=== PATIENT | female | born 1975 | race Hispanic/Latino ===

== ENCOUNTER 2017-11-12 03:59 | Inpatient (IN) | payer OTHER ==
--- NOTE | 2017-11-11 17:41 | History & Physical Pre-Op ---
General Information and HPI History of Present Illness: This patient is a 42yo with chronic pelvic pain admitted for total abdominal hysterectomy. She has been treated hormonally to no avail. She was counselled and offered embolization with IR but desires definitive surgical treatment. She desires to retain he ovaries if found to be normal appearing at time of surgery. Allergies/Medications Allergies: Coded Allergies: No Known Allergies (11/06/17) Home Med list Hydrochlorothiazide 25 MG TABLET 1 TAB PO DAILY BP (Reported) Valacyclovir Hydrochloride (Valtrex) 500 MG TABLET 1 TAB PO DAILY UNKNOWN ( Reported) Vortioxetine Hydrobromide (Trintellix) 5 MG TABLET 1 TAB PO DAILY ANXIETY ( Reported) Past History Surgical History Pertinent Surgical History: , tubal ligation Review of Systems Review of Systems Constitutional: Reports: no symptoms. EENTM: Reports: no symptoms. Cardiovascular: Reports: no symptoms. Respiratory: Reports: no symptoms. GI: Reports: no symptoms. Genitourinary: Reports: see HPI. Musculoskeletal: Reports: see HPI. Skin: Reports: no symptoms. Neurological/Psychological: Reports: no symptoms. Hematologic/Endocrine: Reports: no symptoms. Immunologic/Allergic: Reports: no symptoms. All Other Systems: Reviewed and Negative Exam & Diagnostic Data Last 24 Hrs of Vital Signs/I&O vss Physical Exam: HEENT: NCAT Chest: CTA CV: nl S1S2 Abd: soft, NTND pelvic: deferred to OR Ext: no c/c/e Assessment/Plan Assessment/Plan: chronic pelvic pain ANTHONY ureteral stents pre-op As Ranked By This Provider Problem List: 1. Chronic female pelvic pain
[~2017-11-12] VITALS: Ht 154.9 cm; Wt 90.7 kg
[2017-11-12] VITALS (8 sets, daily range): BP systolic 122–158; BP diastolic 70–96
[~2017-11-12 03:59] MED LIST: HYDROCHLOROTHIA25 M1 PO; TRINTELLIX5 MG PO; VALTREX500 M1 PO
--- NOTE | 2017-11-12 08:10 | Operative Report ---
Operative/Inv Procedure Report Surgery Date: 11/12/17 Name of Procedure: CYSTOSCOPY: BILATERAL STENT INSERTION Pre-Operative Diagnosis: PELVIC PAIN/FIBROIDS Post-Operative Diagnosis: SAME Estimated Blood Loss: scant Surgeon/Apron Operator: MD Yonas, Chris-urology Anesthesia: general endotracheal tube Drains: 18 fr muñoz Specimens: ucx Complications: none Operative/Procedure Note Note: The patient was taken to the operating room and placed on the OR table in supine position. Timeout was performed, with the patient awake, to confirm identify, planned procedures, anesthesia, antibiotics and other pertinent juaquin-operative information. After adequate anesthesia, and IV antibiotics, the patient was placed in lithotomy Yellow-fin stirrups. She was then draped and prepped in the usual surgical fashion, including a vaginal prep. A 22 Bahamian cystoscope sheath with a 30 angle lens was inserted into the bladder without significant difficulty. The bladder was thoroughly and systematically examined, and was noted to be free of tumor, free of stone, free of endometriosis. Both ureteral orifices were in their orthotopic positions with clear reflux bilaterally. Under direct visualization the left orifice was intubated with a 5 Bahamian whistle-tip catheter, which was advanced easily into the left kidney pelvis. The right ureteral orifice was intubated with a second 5 Bahamian ureteral whistle tip catheter, and advanced into the right renal pelvis without difficulty. For identification purposes the blue marked stent went into the left kidney and the right ureteral stent was marked red. Urine culture was obtained and sent to pathology. The cystoscope was then removed leaving both stents in proper place. An 18 Bahamian Muñoz catheter was inserted draining clear fluid and 10 mL of sterile water was then placed in the balloon. The ends ureteral stents, which protruded externally, were taped to the Muñoz catheter in order to secure their position. The individual ureteral stents were then connected to their individual drainage devices. All sponge needle and instrument count were correct at the end of this case. The patient tolerated the procedure well. The patient was then placed in supine position with Venodyne's in place. At this point, Dr.Vander English was able to proceed with the patient's surgery. Discharge Disposition: Proceed with Dr. Brice who will take stents out at end of his surge CC: Chris Branham MD
--- NOTE | 2017-11-12 10:44 | Operative Report ---
Operative/Inv Procedure Report Surgery Date: 11/12/17 Name of Procedure: Total abdominal hysterectomy bilateral salpingectomy Pre-Operative Diagnosis: Chronic pelvic pain Post-Operative Diagnosis: Same Estimated Blood Loss: 100 mL Surgeon/Director Of [employer]: Farrah Will MD,Jovan Vora M.D. Anesthesia: general endotracheal tube Operative/Procedure Note Note: The patient was brought to the operating room placed on the OR table in the dorsal supine position. After she was given general anesthesia she was successfully intubated. She was repositioned in modified dorsal lithotomy and underwent bilateral ureteral stent placement by Dr. Branham. And tabs block by anesthesia. After that procedure was accomplished she was repositioned in dorsal supine. A Darby catheter was draining urine. The abdomen was prepped and draped in usual sterile fashion and a Pfannenstiel skin incision was made with the scalpel. This was taken down to the layer of the fascia nicked in midline and extended bilaterally. The peritoneum was entered bluntly at its extended bilaterally. A O'Tyler-O'Michaels retractor was placed into the abdomen and the intestines were packed away with moistened laparotomy pads. A double-tooth tenaculum was attached to the fundus of the uterus and elevated throughout the case. The right round ligament was isolated with a suture ligature of 0 Polysorb and transected. The same procedures. On the left. The right utero-ovarian ligament was clamped transected and suture ligated with 0 Polysorb. The same procedures. On the left with good hemostasis. The right uterine artery was clamped transected and suture ligated with 0 Polysorb the same procedure is repeated on the left good hemostasis. Bladder flap was created previously and taken down well away from the uterine artery. The cardinal ligaments were sequentially clamped transected and suture ligated bilaterally with good hemostasis. The uterus was then transected from the cervix and taken off the operative field. Cardinal ligaments were continued to be clamped transected and suture ligated until the vagina was met. At this point great duct clamps were placed over the vagina and the cervix was removed and sent to pathology. The vaginal cuff was oversewn with 0 Polysorb in a running locking fashion. The abdomen was irrigated and there was some bleeding noted from the left apex of the vaginal cuff and this was oversewn in a figure- of-eight fashion. Risks to coagulant was placed on the surgical sites. The retractor and lap pads were removed. The rectus muscles were reapproximated with 2 interrupted sutures of 0 Polysorb. Fascia was closed using 0 Polysorb in a running nonlocking fashion. Subcutaneous tissues were irrigated and coagulated were needed. There was a bleeder on the rectus muscle on the right and this was coagulated and sewn closed with [id number] suture. Skin was closed using mikael and a dry sterile dressing was applied to the wound. The vagina was checked and noted to be hemostatic. The patient was awakened and sent to recovery in good condition. All needle, and sponge counts were correct at the end of the procedure 2.
[2017-11-13] VITALS (12 sets, daily range): BP systolic 110–149; BP diastolic 60–90
[2017-11-13 08:13] LABS: ABSOLUTE BASOPHIL COUNT 0 /CUMM (0.0-0.2); ABSOLUTE EOSINOPHIL COUNT 0 /CUMM (0.0-0.7); ABSOLUTE GRANULOCYTE CT 6.7 /CUMM (1.4-6.5); BASOPHIL % 0.2 % (0.0-2.0); EOSINOPHIL % 0 % (0-5)
[2017-11-13] MEDS ORDERED: IBUPROFEN800 M1 PO (08:24)
[2017-11-13] MEDS ORDERED: PERCOCET 5-3251 EACH PO (08:24)
[2017-11-13 08:33] LABS: ABSOLUTE LYMPH COUNT 1.5 /CUMM (1.2-3.4); ABSOLUTE MONOCYTE COUNT 0.6 /CUMM (0.10-0.60); GRANULOCYTE % 75.5 % (42.2-75.2); MEAN CORPUSCULAR HGB 30.7 PG (27.0-31.0); MEAN CORPUSCULAR HGB CONC 33.3 G/DL (33.0-37.0); MEAN CORPUSCULAR VOLUME 92.2 FL (81.0-99.0); MEAN PLATELET VOLUME 8.8 FL (7.4-10.4); PLATELET COUNT 214 /CUMM (130-400); RBC DISTRIBUTION WIDTH 13.3 % (11.5-14.5); RED BLOOD CELL CT 3.16 /CUMM (4.20-5.40)
[2017-11-13 08:47] LABS: HEMATOCRIT 29.1 % (37-47); WHITE BLOOD CELL COUNT 8.8 /CUMM (4.8-10.8)
--- NOTE | 2017-11-13 20:19 | PN- General Surgery ---
Subjective Subjective: doing well; pain well controlled Review of Systems: pos flatus Objective Vital Signs and I&Os Vital Signs Date Time Temp Pulse Resp B/P B/P Pulse O2 O2 Flow FiO2 Mean Ox Delivery Rate / 1532 98.0 80 16 110/60 99 06/07 0820 98.2 87 18 149/90 97 06/07 0800 98.1 88 20 146/82 06/07 0616 98.1 88 16 146/82 96 Room Air 06/07 0600 98.1 88 16 146/82 06/07 0408 98.3 98 16 136/82 96 Room Air 06/07 0400 98.3 98 16 136/82 06/07 0209 98.5 80 18 130/78 99 Room Air 06/07 0200 98.5 80 18 130/78 06/07 0018 98.3 80 18 134/82 96 Room Air 06/07 0000 98.3 80 20 134/82 06/06 2213 98.0 100 20 124/70 96 Room Air 06/06 2200 98.0 100 20 124/70 Intake & Output / 1600 06/07 0800 06/07 0000 06/06 1600 06/06 0800 06/06 0000 Intake Total 500 6892 267 0146 Output Total 450 1500 600 Balance 500 790 -660 875 Intake, IV 1000 600 875 Intake, Oral 500 240 240 600 Output, Urine 450 1500 600 Patient 200 lb Weight Weight Reported by Patient Measurement Method Physical Exam: abd soft NDNT incision c/d/i ext nt Assessment/Plan Assessment/Plan s/p TAHBS pod1 stable discharge in am Core Measures Venous Thromboembolism VTE Risk Factors Surgery No Mechanical VTE Prophylaxis d/t N/A MechProphylax Ordered No VTE Pharm Prophylaxis d/t Bleeding (Active)
[2017-11-14 06:58] VITALS: BP 132/80
--- NOTE | 2017-11-14 10:40 | Surgical Discharge Summary ---
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 Home Who Do You Live With? Family Services at Home: None What is Your Primary Language? German Tobacco History: NA ETOH Use: denies use Review of Systems: Denies nausea nor vomiting Physical Exam: Aox3 NAD Abdomen soft and binder in place Wound intact with mikael No peripheral edema noted Hospital Course Course Attending Physician: Jovan Brice MD Primary Care Physician: Alessandro Harrell APRN Hospital Course: S/p ANTHONY and bilateral salpingectomy Complications: None Allergies: Coded Allergies: No Known Allergies (11/06/17) Significant Procedures: ANTHONY and bilateral salpingectomy Pertinent Lab Results: Hct 29.1 Disposition Summary Disposition Principal Diagnosis: Chronic pelvic pain Additional Diagnosis: None Discharge Disposition: home or self care Discharge Instructions General Discharge Information Code Status: Full Code Patient's Diet: Regular Patient's Activity: As tolerated but no heavy lifting Follow-Up Instructions/Appts: Follow up FridayNovember 18 for staple removal with Dr Cabrera Medications at Discharge Discharge Medications: Continue taking these medications: Hydrochlorothiazide (Hydrochlorothiazide) 25 MG TABLET 1 Tablet ORAL DAILY Comments: Last Taken: 11/14/17 Time: 08:40 AM Valacyclovir Hydrochloride (Valtrex) 500 MG TABLET 1 Tablet ORAL DAILY Comments: Last Taken: 11/14/17 Time: 08:40 AM Vortioxetine Hydrobromide (Trintellix) 5 MG TABLET 1 Tablet ORAL DAILY Comments: NOT ADMINISTERED IN HOSPITAL Start taking the following new medications: Ibuprofen (Ibuprofen) 800 MG TABLET 800 Milligram ORAL EVERY SIX HOURS NEEDED as needed for PAIN Qty = 36 No Refills Comments: Last Taken: 11/13/17 Time: 22:20 PM Oxycodone HCl/Acetaminophen (Percocet 5-325 MG Tablet) 5 MG-325 MG TABLET 1-2 Tablet ORAL EVERY 4 HOURS NEEDED as needed for PAIN Qty = 26 No Refills Comments: Last Taken: 11/14/17 Time: 06:18 AM Copies To: Farrah Will MD,Jovan Attending MD Review Statement Attending Statement Attending MD Statement: examined this patient, discussed w/nursing Attending Assessment/Plan: Wound care instructions given Pain mgmt counseling given. Consider topical lidocaine patch 4% OTC in addition to the tylenol, motrin and oxycodone as needed.
== END 2017-11-14 11:44 | DRG 983 ==
LOC: 2NA 03:59 → SDA 03:59 → ENRESERV 10:23 → ENTRNSPT 12:11 → EDTRNSPTSTS 12:12 → EDTRNSPT 12:12 → 2NA 12:28 → CMPTRNSPT 12:36 → ENPENDDIS 11-14 06:50 → ENTRNSPT 11-14 11:21 → EDTRNSPTSTS 11-14 11:40 → 2NA 11-14 11:44 → CMPTRNSPT 11-14 12:20
PROVIDERS: Obstetrics & Gynecology
PROC: 0UT90ZZ Resection of Uterus, Open Approach (ICD-10-PCS; principal; 2017-11-12)
PROC: 0UT70ZZ Resection of Bilateral Fallopian Tubes, Open Approach (ICD-10-PCS; 2017-11-12)
PROC: 0T744DZ Dilation of Left Kidney Pelvis with Intraluminal Device, Percutaneous Endoscopic Approach (ICD-10-PCS; 2017-11-12)
PROC: 0T734DZ Dilation of Right Kidney Pelvis with Intraluminal Device, Percutaneous Endoscopic Approach (ICD-10-PCS; 2017-11-12)
DX: R10.2 Pelvic and perineal pain (principal); Z98.84 Bariatric surgery status; K21.9 Gastro-esophageal reflux disease without esophagitis; Z90.49 Acquired absence of other specified parts of digestive tract; Z98.51 Tubal ligation status; D64.9 Anemia, unspecified
CPT/HCPCS: 2NAP; 36415; 87086; J0131; J0694; J1170; J1200; J2405; J3490